=== PATIENT | female | born 1990 | race Caucasian/White ===

== ENCOUNTER 2017-05-21 09:48 | Emergency (ER) | payer OTHER ==
[~2017-05-21] VITALS: Ht 167.6 cm; Wt 63.5 kg
[2017-05-21 11:07] VITALS: BP 143/91
== END 2017-05-21 11:07 | disposition other institution (70) ==
LOC: ED 09:48
DX: Z02.89 Encounter for other administrative examinations (principal); S41.032A Puncture wound without foreign body of left shoulder, initial encounter; S31.131A Puncture wound of abdominal wall without foreign body, left upper quadrant without penetration into peritoneal cavity, initial encounter; X58.XXXA Exposure to other specified factors, initial encounter; Y93.89 Activity, other specified; Y99.8 Other external cause status; Y92.89 Other specified places as the place of occurrence of the external cause